=== PATIENT | female | born 1955 | race Caucasian/White ===

== ENCOUNTER 2020-05-26 23:00 | Observation (INO) ==
[2020-05-27 00:23] LABS: Prothrombin Time 11.6 Seconds (9.4-12.1)
[2020-05-27 00:25] LABS: Activated Partial Thrombo Time 30.9 Seconds (26.0-36.0)
[2020-05-27] MEDS: Aspirin 81 MG TAB.CHEW PO SCH ×2 (00:29→08:19)
[2020-05-27 00:31] LABS: Basophils % 0.3 %; Eosinophils # 0.4 K/mcL (0.0-0.6); Eosinophils % 6.8 %; Hematocrit 37.2 % (35.3-44.9); Hemoglobin 12.5 g/dL (11.5-15.4); Immature Granulocytes % 0.2 % (0-4); Lymphocytes # 0.9 K/mcL (0.6-4.6); Lymphocytes % 14.2 %; Mean Corpuscular HGB Conc 33.6 g/dL (31.6-35.5); Mean Corpuscular Hemoglobin 29.8 pg (28.0-33.3); Mean Corpuscular Volume 88.6 fL (83.0-100.0); Mean Platelet Volume 9.3 fL (9.4-12.4); Monocytes # 0.5 K/mcL (0.0-1.3); Monocytes % 7.5 %; Neutrophils # 4.3 K/mcL (1.6-8.9); Platelet Count 189 K/mcL (140-400); Red Cell Distribution Width 12.8 % (11.5-14.5)
[2020-05-27 00:40] LABS: BUN/Creatinine Ratio 16 (6-26); Blood Urea Nitrogen 13 mg/dL (8-23); Calcium 8.2 mg/dL (8.6-10.3); Carbon Dioxide 23 mEq/L (23-29); Chloride 104 mEq/L (98-107); Glucose 150 mg/dL (70-105); Osmolality,Calculated 283 (280-300); Potassium 3.8 mEq/L (3.5-5.1); Sodium 135 mEq/L (136-145); Troponin I < 0.03 ng/mL (< 0.04); eGFR For African Americans > 60 (> 60); eGFR For Non-African Americans > 60 (> 60)
[2020-05-27 00:54] LABS: Thyroid Stimulating Hormone 1.047 mcIU/mL (0.340-5.600)
[2020-05-27] MEDS ORDERED: Acetaminophen 325 MG TABLET PO PRN (03:08)
[2020-05-27] MEDS ORDERED: Naloxone 0.4 MG/ML INJ IVP PRN (03:08)
[2020-05-27] MEDS ORDERED: *HR* Promethazine 25 MG/ML VIAL IVP PRN (03:08)
[2020-05-27] MEDS ORDERED: Perflutren Lipid Microsphere 1.3 ML in 0.9 % Sodium Chloride 8.7 ML IVP PRN (03:10)
[2020-05-27] MEDS ORDERED: D5% in Water 1,000 ML IVC PRN (03:20)
[2020-05-27] MEDS ORDERED: Dextrose Gel 15 GM/37.5 ML TUBE PO PRN ×2 (03:20)
[2020-05-27] MEDS ORDERED: *HR* Dextrose 50 % in Water (Vial) 50 ML VIAL IVP PRN (03:20)
[2020-05-27] MEDS ORDERED: *HR* Heparin 5,000 UNIT/ML VIAL SQ SCH (06:00)
[2020-05-27] MEDS ORDERED: Regadenoson 0.4 MG/5 ML SYRINGE IVP ONE (06:21)
[2020-05-27 06:44] LABS: Prothrombin Time 11.5 Seconds (9.4-12.1)
[2020-05-27 07:17] LABS: Alanine Aminotransferase 9 Units/L (7-52); Albumin 3.6 g/dL (3.5-5.7); Albumin/Globulin Ratio 1.5 (1.1-2.2); Alkaline Phosphatase 66 Units/L (34-104); Aspartate Amino Transferase 11 Units/L (13-39); BUN/Creatinine Ratio 14 (6-26); Bilirubin,Total 0.6 mg/dL (0.3-1.0); Blood Urea Nitrogen 11 mg/dL (8-23); Calcium 8.6 mg/dL (8.6-10.3); Carbon Dioxide 24 mEq/L (23-29); Chloride 106 mEq/L (98-107); Chol/HDL Ratio 4.4 (0-4.9); Cholesterol 174 mg/dL (< 200); Globulin 2.4 g/dL (2.4-3.5); Glucose 116 mg/dL (70-105); HDL Cholesterol 40 mg/dL (40-59); LDL Cholesterol,Calculated 120 mg/dL (< 100); Magnesium 2.2 mg/dL (1.6-2.6); Osmolality,Calculated 284 (280-300); Phosphorous 3.5 mg/dL (2.7-4.5); Potassium 4.1 mEq/L (3.5-5.1); Sodium 137 mEq/L (136-145); Triglycerides 68 mg/dL (< 150); Troponin I < 0.03 ng/mL (< 0.04); eGFR For African Americans > 60 (> 60); eGFR For Non-African Americans > 60 (> 60)
[2020-05-27] MEDS ORDERED: Insulin LISPRO 300 UNITS/3 ML VIAL SQ SCH (07:30)
[2020-05-27] MEDS ORDERED: Fluticasone Propionate Nasal 50 MCG/SPRAY BOTTLE NS PRN (08:46)
[2020-05-27] MEDS ORDERED: Loratadine 10 MG TABLET PO PRN (08:46)
[2020-05-27] MEDS ORDERED: Pregabalin 50 MG CAPSULE PO SCH (09:00)
[2020-05-27 12:35] VITALS: BP 151/76
== END 2020-05-27 14:43 | disposition home or self-care (01) ==
LOC: EMEROOARM 23:00 → 3BNU 23:00 → SUATTDRO 05-27 01:40 → 3BNU 05-27 02:30
PROVIDERS: ADMIT Internal Medicine; ATTEND Internal Medicine